=== PATIENT | male | born 1940 | race Caucasian/White ===

== ENCOUNTER 2016-12-28 20:06 | Emergency (ER) | payer MEDICARE ==
[2016-12-28 18:35] LABS: BASOPHILS 0.5 %; BASOPHILS ABSOLUTE 0.02 10/3/uL (0.0-0.16); EOSINOPHILS 1.7 %; EOSINOPHILS ABSOLUTE 0.07 10/3/uL (0.0-0.53); HEMATOCRIT 39.1 % (40.0-51.0); HEMOGLOBIN 13.6 g/dL (13.6-17.8); LYMPHOCYTES ABSOLUTE 1.42 10/3/uL (0.67-4.30); MANUAL DIFF NO %; MEAN CORPUS HGB CONC 34.8 g/dL (32.0-36.0); MEAN CORPUSCULAR HEMOGLOB 36.4 pg (26.0-34.0); MEAN CORPUSCULAR VOLUME 104.5 fL (80-100); MEAN PLATELET VOLUME 11.7 fL (9.2-13.0); MONOCYTES 12.8 %; MONOCYTES ABSOLUTE 0.52 10/3/uL (0.21-1.20); NEUTROPHILS ABSOLUTE 2.03 10/3/uL (2.02-8.40); PLATELET COUNT 120 10/3/uL (150-400); RBC DISTRIBUTION WIDTH 12.6 % (12.0-16.0); RED CELL COUNT 3.74 10/6/uL (4.7-6.1); WHITE BLOOD CELLS 4.1 10/3/uL (4.5-10.5)
[2016-12-28 18:44] LABS: PARTIAL THROMBO TIME 27.7 SEC (22.5-37.2); PROTIME (NOT ORD) 13.2 SEC (12.0-14.5)
[2016-12-28 18:49] LABS: CHLORIDE, SERUM 103 MMOL/L (96-112); CO2 (CARBON DIOXIDE) 30 MMOL/L (24-34); CREATININE 1.14 MG/DL (0.70-1.30); GFR AFRICAN AMERICAN 72 ML/MIN (>=60); GFR NON AFRICAN AMERICAN 62 ML/MIN (>=60); GLUCOSE, SERUM 96 MG/DL (60-99); POTASSIUM, SERUM 4.2 MMOL/L (3.5-5.3); SODIUM, SERUM 141 MMOL/L (135-148)
[2016-12-28 18:52] LABS: BUN (BLOOD UREA NITROGEN) 20 MG/DL (6-23); CALCIUM, SERUM 9.4 MG/DL (8.5-10.4)
[~2016-12-28 20:06] MED LIST: ASAB PO; CENTRUM SILVER OR; DIOV80 PO; DIOVAN40 MG PO; EPIPEN0.3 IM; FLONASE NAS; LOTE20 PO; ZOCOR20 PO; ZOCOR80 MG PO
[2016-12-28] MEDS ORDERED: COREGCR10 PO (21:04)
[2016-12-28] MEDS ORDERED: IMDUR30 PO (21:04)
[2016-12-28] MEDS ORDERED: LOTE20 PO (21:04)
[2016-12-28] MEDS ORDERED: CRESTOR20 MG PO (21:05)
[2016-12-28] MEDS ORDERED: FLONASE NAS (21:05)
[2016-12-28] MEDS ORDERED: VITAMIN D1000 UNI1 PO (21:05)
[2016-12-28] MEDS ORDERED: FOLBIC PO (21:05)
[2016-12-28] MEDS ORDERED: ASA5GR PO (21:06)
[2016-12-28] MEDS ORDERED: EPIPEN0.3 IM (21:06)
== END 2016-12-28 22:04 | disposition short-term general hospital (02) ==
LOC: ER 20:06
PROVIDERS: Nurse Practitioner Family
DX: S06.5X0A Traumatic subdural hemorrhage without loss of consciousness, initial encounter (principal); S13.160A Subluxation of C5/C6 cervical vertebrae, initial encounter; I10 Essential (primary) hypertension; Z95.1 Presence of aortocoronary bypass graft; Z86.73 Personal history of transient ischemic attack (TIA), and cerebral infarction without residual deficits; Z79.82 Long term (current) use of aspirin; Z79.899 Other long term (current) drug therapy; W19.XXXA Unspecified fall, initial encounter
CPT/HCPCS: 70450; 72125; 80048; 85025; 85610; 85730; 99285